=== PATIENT | female | born 1990 | race Caucasian/White ===

== ENCOUNTER 2017-09-14 00:50 | Inpatient (IN) | payer OTHER ==
[~2017-09-14] VITALS: Ht 165.1 cm; Wt 59.0 kg
--- NOTE | 2017-09-14 01:06 | NUR ---
PT BIB [facility] C/C OF SEIZURE X 1 HOUR AGO. PT UNCOOPERATIVE. NAD. VSS. AWAITING MD STEVENSON.
[2017-09-14] MEDS ORDERED: ONDANSETRON HCL/PF 4 MG/2 ML VIAL ONE (01:54)
[2017-09-14 01:56] LABS: BASOPHILS % (AUTO) 0.1 % (0.0-2.0); HEMATOCRIT 35 % (33-45); HEMOGLOBIN 11.9 g/dL (11.5-14.8); LYMPHOCYTES # (AUTO) 1.3 /CMM (0.8-4.8); LYMPHOCYTES % (AUTO) 8.8 % (20.0-44.0); MEAN CORPUSCULAR HEMOGLOBIN 31 PG (26.0-33.0); MEAN CORPUSCULAR HGB CONC 34 g/dl (31.0-36.0); MEAN CORPUSCULAR VOLUME 92 fL (82-100); MONOCYTES # (AUTO) 0.6 /CMM (0.1-1.30); MONOCYTES % (AUTO) 3.8 % (2.0-12.0); NEUTROPHILS # (AUTO) 13.1 /CMM (1.8-8.9); NEUTROPHILS % (AUTO) 87.3 % (43.0-81.0); PLATELET COUNT (AUTO) 271 /CMM (150-450); RDW COEFFICIENT OF VARIATION 12.7 (11.5-15.0); RED BLOOD CELL COUNT(AUTO) 3.81 MIL/uL (4.0-5.2)
[2017-09-14] MEDS ORDERED: ONDANSETRON HCL/PF 4 MG/2 ML VIAL IV ONE (02:00)
[2017-09-14 02:12] LABS: ACETAMINOPHEN 0 ug/ml (10-30); ALANINE AMINOTRANSFERASE 17 U/L (12-78); ALBUMIN 3.5 g/dL (3.4-5.0); ALCOHOL, BLOOD < 3 mg/dL (0-0); ALKALINE PHOSPHATASE 33 U/L (46-116); ASPARTATE AMINOTRANSFERASE 20 U/L (15-37); BILIRUBIN,DIRECT 0.2 mg/dL (0.0-0.2); BILIRUBIN,TOTAL 1.4 mg/dL (0.2-1.0); CALCIUM, SERUM 7.9 mg/dL (8.5-10.1); CARBON DIOXIDE 20 mmol/L (21-32); CHLORIDE 87 mmol/L (98-107); CREATININE 0.9 mg/dL (0.6-1.3); GLUCOSE 136 mg/dL (74-106); LIPASE 141 U/L (73-393); POTASSIUM 3.1 mmol/L (3.5-5.1); SALICYLATE < 0.2 mg/dL (2.8-20.0); TOTAL PROTEIN, SERUM 6.4 g/dL (6.4-8.2); UREA NITROGEN, BLOOD 7 mg/dL (7-18)
[2017-09-14 02:13] LABS: SODIUM SERUM 119 mmol/L (136-145)
--- NOTE | 2017-09-14 02:17 | NUR ---
PT BROUGHT TO CT
--- NOTE | 2017-09-14 02:34 | NUR ---
PT RETURNED FROM CT.
[2017-09-14 03:30] LABS: APPEARANCE,URINE CLEAR (CLEAR); BILIRUBIN,URINE NEGATIVE (NEGATIVE); BLOOD, URINE TRACE-INTA Ery/uL (NEGATIVE); COLOR,URINE YELLOW (YELLOW); KETONES,URINE 2+ (NEGATIVE); LEUKOCYTE ESTERASE ,URINE NEGATIVE (NEGATIVE); NITRITE, URINE NEGATIVE (NEGATIVE); PROTEIN,URINE NEGATIVE (NEGATIVE); UGLUCOSE NEGATIVE (NEGATIVE); UROBILINOGEN,URINE 0.2 EU/dL (0.2)
[2017-09-14 03:43] LABS: BACTERIA,URINE Few /HPF (None Seen); RBC,URINE 0-2 /HPF (0-2); WBC,URINE 0-2 /HPF (0-3)
[2017-09-14 03:44] LABS: SQUAMOUS EPITHELIAL CELL,UR Few /HPF (None Seen)
--- NOTE | 2017-09-14 03:45 | NUR ---
REPORT GIVEN TO DEVIKA GUERRA BED 106
--- NOTE | 2017-09-14 04:30 | NUR ---
wireless telegrapher notes received fishing vessel captain and report from mook er nurse , pts is 27 y/o female ,awake but not cooperative , admitted with dx of encephalopathy, hx unable to obtain . pts refused to answer question , admitted under the service of dr cesar . pts with ivf of ns at 75cc/hr infusing well no sob no distress noted v/s stable afebrile. all needs attended too call light within reach endorse to rn day shift to follow up on pts allergy due to pts not talking.dr cesar made aware of critical labs, sodium 119 k-3.1.
[2017-09-14 04:42] VITALS: BP 141/65
[2017-09-14] MEDS ORDERED: MAG HYDROX/AL HYDROX/SIMETH 30 ML UDC PO PRN (05:00)
[2017-09-14] MEDS ORDERED: ACETAMINOPHEN 325 MG TABLET PO PRN (05:00)
[2017-09-14] MEDS ORDERED: HYDROCODONE/APAP 5/325MG 1 EACH TABLET PO PRN (05:00)
[2017-09-14] MEDS ORDERED: MAGNESIUM HYDROXIDE 30 ML UDC PO PRN (05:00)
[2017-09-14] MEDS ORDERED: ONDANSETRON HCL/PF 4 MG/2 ML VIAL IVP PRN (05:00)
[2017-09-14] MEDS ORDERED: Z GUARD REMEDY 2 OZ OINT TP PRN (05:00)
[2017-09-14] MEDS ORDERED: ZOLPIDEM TARTRATE 5 MG TABLET PO PRN (05:00)
[2017-09-14] MEDS: IV NS 0.9% 1,000 ML IV PRN ×2 (05:45→20:04)
--- NOTE | 2017-09-14 07:15 | NUR ---
EIGHT SECTION BLOWER INITIAL NOTES PT RESTING IN BED, A&O X1 ONLY OPENS EYES MOANS AGITATED RESTLESS AND CONFUSED, UNABLE TO FOLLOW COMMANDS, ON RA SAT ABOVE 97% NO SOB OR ACUTE DISTRESS, UNABLE TO FIND OUT HX AND ALLERGIES SINCE PT HAS NO FAMILY AND IS NOT AWAKE TO ANSWER QS, ON TELE MON SR ST HR 115 WITH T ELEVATION, RT FA IV SITE INFILTRATED WILL NEED TO PUT NEW IV, DIAPER PLACED, BEDDING CHANGED, SEZIURE PRECAUTION, ALL NEEDS MET, ALL SAFETY MEASURES INITIATED, WILL CONTINUE TO MONITOR.
[2017-09-14 08:00] VITALS: BP 133/65
[2017-09-14 09:16] LABS: BASOPHILS # (AUTO) 0.1 /CMM (0.0-0.2); BASOPHILS % (AUTO) 0.5 % (0.0-2.0); HEMATOCRIT 41 % (33-45); HEMOGLOBIN 13.8 g/dL (11.5-14.8); LYMPHOCYTES # (AUTO) 1.3 /CMM (0.8-4.8); LYMPHOCYTES % (AUTO) 5.6 % (20.0-44.0); MEAN CORPUSCULAR HEMOGLOBIN 31 PG (26.0-33.0); MEAN CORPUSCULAR HGB CONC 33 g/dl (31.0-36.0); MEAN CORPUSCULAR VOLUME 94 fL (82-100); MONOCYTES # (AUTO) 1.2 /CMM (0.1-1.30); MONOCYTES % (AUTO) 5.2 % (2.0-12.0); NEUTROPHILS # (AUTO) 20.8 /CMM (1.8-8.9); NEUTROPHILS % (AUTO) 88.7 % (43.0-81.0); PLATELET COUNT (AUTO) 331 /CMM (150-450); RDW COEFFICIENT OF VARIATION 12.7 (11.5-15.0); WHITE BLOOD COUNT (AUTO) 23.4 K/uL (4.3-11.0)
[2017-09-14 09:43] LABS: ALBUMIN 3.9 g/dL (3.4-5.0); BILIRUBIN,TOTAL 2.5 mg/dL (0.2-1.0); CALCIUM, SERUM 8.8 mg/dL (8.5-10.1); POTASSIUM 4.6 mmol/L (3.5-5.1); TOTAL PROTEIN, SERUM 7.4 g/dL (6.4-8.2)
[2017-09-14 09:45] LABS: THYROID STIMULATING HORMONE 1.349 uIU/mL (0.358-3.74)
[2017-09-14 12:00] VITALS: BP 104/44
[2017-09-14 13:04] LABS: CREATINE KINASE MB 12.1 ng/mL (0-3.6)
[2017-09-14 16:00] VITALS: BP 103/60
--- NOTE | 2017-09-14 19:40 | NUR ---
MED SPEC NOTES, PT SLEEPING IN BED AT THIS TIME, BREATHING EVEN AND UNLABORED, ON RA SAT ABOVE 96% NO SOB OR ACUTE DISTRESS NOTED AT THIS TIME, SR ON TELE MONITOR, FRIENDS AT BEDSIDE, PIV LINE IN LEFT HAND, INTACT AND PATENT, NO S/S OF INFILTRATION NOTED AT THIS TIME, ALL NEEDS PROVIDED, ON SEIZURE PRECAUTIONS, BED LOCKED AND IN LOWEST POSITION, CALL LIGHT W/I REACH, WILL CONTINUE TO MONITOR.
[2017-09-14 20:00] VITALS: BP 96/59
--- NOTE | 2017-09-14 20:01 | NUR ---
CONCRETE MIXING TRUCK DRIVER ENDING NOTES PT IS A& O X 2-3 NOW AWAKE AND ABLE TO COMMUNICATE, BED BATH PROVIDED, LINENS CHANGED, PTS ROOMMATES AT BEDSIDE ARI AND ELI, AND [phone], INSERTED NEW IV LT HAND 22G IV NS RUNNING 125 ML/HR NO INFILTRATION NOTED, NO PO MEDS GIVEN, ALL NEEDS MET, SAFETY PRECAUTION, PER MD ORDER NO HALDOL OR ATIVAN, WILL CONTINUE TO MONITOR AND CARE FOR PT.
[2017-09-15] VITALS: BP_SYST 92; BP_SYST 99; BP_DIAS 44; BP_DIAS 48
[2017-09-15 04:00] VITALS: BP 107/48
[2017-09-15 06:29] LABS: BASOPHILS % (AUTO) 0.3 % (0.0-2.0); HEMATOCRIT 38 % (33-45); HEMOGLOBIN 12.6 g/dL (11.5-14.8); LYMPHOCYTES # (AUTO) 1.5 /CMM (0.8-4.8); LYMPHOCYTES % (AUTO) 13.8 % (20.0-44.0); MEAN CORPUSCULAR HEMOGLOBIN 32 PG (26.0-33.0); MEAN CORPUSCULAR HGB CONC 34 g/dl (31.0-36.0); MEAN CORPUSCULAR VOLUME 94 fL (82-100); MONOCYTES # (AUTO) 1.2 /CMM (0.1-1.30); NEUTROPHILS % (AUTO) 74.9 % (43.0-81.0); PLATELET COUNT (AUTO) 254 /CMM (150-450); RDW COEFFICIENT OF VARIATION 13.4 (11.5-15.0); WHITE BLOOD COUNT (AUTO) 10.6 K/uL (4.3-11.0)
--- NOTE | 2017-09-15 06:30 | NUR ---
NURSE SUPERVISOR ENDING NOTES PATIENT, SLEEPING AT THIS TIME BUT EASILY AROUSABLE, BREATHING EVEN AND UNLABORED, NO SOB/ACUTE DISTRESS NOTED AT THIS TIME, NO C/O PAIN OR ANY DISCOMFORT, AND ABLE TO VERBALIZED NEEDS AND CONCERNS, LEFT HAND 22G PIV INTACT AND PATENT, NS 75 ML/HR NO S/S OF INFILTRATION NOTED, ON SEIZURE PRECAUTIONS, PER MD ORDER NO HALDOL OR ATIVAN, BED LOCKED AND IN LOWEST POSITION, CALL LIGHT W/I REACH, WILL ENDORSE CONTINUITY OF CARE TO ONCOMING NURSE.
[2017-09-15 06:37] LABS: ALBUMIN 3.3 g/dL (3.4-5.0); CALCIUM, SERUM 8.2 mg/dL (8.5-10.1); CREATININE 0.9 mg/dL (0.6-1.3); PHOSPHORUS 2.6 mg/dL (2.5-4.9); POTASSIUM 3.8 mmol/L (3.5-5.1); TOTAL PROTEIN, SERUM 6.6 g/dL (6.4-8.2)
--- NOTE | 2017-09-15 07:45 | NUR ---
FLIGHT COMMUNICATIONS OFFICER OPENING NOTES RECEIVED PATIENT IN STABLE CONDITION. IN NO APPARENT DISTRESS. BEDSIDE RAILS ARE UPX2. BED IS LOCKED AND LOWERED. CALL LIGHT IS WITHIN REACH. IV LINE IS INTACT AND PATENT. WILL CONTINUE TO MONITOR.
[2017-09-15 08:00] VITALS: BP 102/60
[2017-09-15] MEDS: IV NS 0.9% 1,000 ML IV PRN ×2 (09:12→22:34)
[2017-09-15 12:00] VITALS: BP 98/52
--- NOTE | 2017-09-15 14:30 | NUR ---
Social service consult requested by TJSharri SALAZAR Soon for drug overdose. Pt. is a 27 year old female who was admitted to [facility] for hyponutremia and ALOC. SW met with pt. bedside. Pt's roommate Jose was present, however left once SW met the pt. bedside. Pt. states she lives with two roommates at [address] [place] [address] in [facility]. Pt. is originally from [facility] and her family lives there as well. Pt's emergency contact is her brother Collin . Pt. stated she was at a concert with her roommates at the [facility] when she began to collapse and started shaking while at the concert. Pt. stated she had taken ecstasy at around 6:30pm that day. Pt. states this is the second time she has done ecstasy and has never had a bad reaction as this before. Pt. denies using any other drugs and states she has used marijuana but very rarely. Pt. drinks alcohol socially. LATHA inquired with pt. if she would like any referrals to drug treatment programs. Pt. declined. SW advised pt. to be careful when consuming drugs since she is unaware of what exactly is in the drugs she is using. Pt. understood. No other social service needs are required at this time.
[2017-09-15 16:00] VITALS: BP 96/50
--- NOTE | 2017-09-15 18:22 | NUR ---
AUTOMOTIVE TECHNOLOGY INSTRUCTOR CLOSING NOTES PATIENT IS RESTING IN STABLE CONDITION. IN NO APPARENT DISTRESS. BEDSIDE RAILS ARE UPX2. BED IS LOCKED AND LOWERED. CALL LIGHT IS WITHIN REACH. IV LINE IS INTACT AND PATENT. ALL NEEDS WERE MET. WILL ENDORSE CARE TO MOTEL CLERK NURSE FOR JOSAFAT.
--- NOTE | 2017-09-15 19:30 | NUR ---
SET UP AND LAY OUT INSPECTOR INITIAL NOTES, SLEEPING IN BED AT THIS TIME, BREATHING EVEN AND UNLABORED, ON RA SAT ABOVE 98% NO SOB OR ACUTE DISTRESS NOTED AT THIS TIME, NO C/O PAIN OR DISCOMFORT AT THIS TIME, SR ON TELE MONITOR, FRIENDS AT BEDSIDE, PIV LINE IN LEFT HAND, INTACT AND PATENT, NO S/S OF INFILTRATION NOTED AT THIS TIME, IVF INFUSING WELL AND PATIENT TOLERATED WELL, ALL NEEDS PROVIDED, BED LOCKED AND IN LOWEST POSITION, CALL LIGHT W/I REACH, WILL CONTINUE TO MONITOR. CLOSELY.
[2017-09-15 20:00] VITALS: BP 101/53
[2017-09-16] VITALS: BP 99/44
[2017-09-16 04:00] VITALS: BP 101/49
[2017-09-16 06:37] LABS: BASOPHILS % (AUTO) 0.6 % (0.0-2.0); EOSINOPHILS % (AUTO) 0.7 % (0.0-6.0); HEMATOCRIT 35 % (33-45); HEMOGLOBIN 11.9 g/dL (11.5-14.8); LYMPHOCYTES # (AUTO) 2.9 /CMM (0.8-4.8); LYMPHOCYTES % (AUTO) 39.5 % (20.0-44.0); MEAN CORPUSCULAR HEMOGLOBIN 32 PG (26.0-33.0); MEAN CORPUSCULAR HGB CONC 34 g/dl (31.0-36.0); MEAN CORPUSCULAR VOLUME 93 fL (82-100); MONOCYTES # (AUTO) 0.7 /CMM (0.1-1.30); MONOCYTES % (AUTO) 9.9 % (2.0-12.0); NEUTROPHILS # (AUTO) 3.6 /CMM (1.8-8.9); NEUTROPHILS % (AUTO) 49.3 % (43.0-81.0); PLATELET COUNT (AUTO) 234 /CMM (150-450); RDW COEFFICIENT OF VARIATION 13.6 (11.5-15.0); RED BLOOD CELL COUNT(AUTO) 3.74 MIL/uL (4.0-5.2); WHITE BLOOD COUNT (AUTO) 7.3 K/uL (4.3-11.0)
--- NOTE | 2017-09-16 06:42 | NUR ---
PERSONAL DRIVER CLOSING NOTES, PATIENT SLEEPING IN BED AT THIS TIME, BREATHING EVEN AND UNLABORED, NO SOB OR ACUTE DISTRESS NOTED AT THIS TIME, NO C/O PAIN OR DISCOMFORT AT THIS TIME, SB ON TELE MONITOR, PIV LINE IN LEFT HAND, INTACT AND PATENT, NO S/S OF INFILTRATION NOTED AT THIS TIME, IVF INFUSING WELL AND PATIENT TOLERATED WELL, ALL NEEDS PROVIDED, BED LOCKED AND IN LOWEST POSITION, REMAINED STABLE THROUGHOUT THE NIGHT, CALL LIGHT W/I REACH, WILL CONTINUE TO MONITOR. CLOSELY.
[2017-09-16 06:50] LABS: ALBUMIN 3.1 g/dL (3.4-5.0); BILIRUBIN,TOTAL 0.3 mg/dL (0.2-1.0); CALCIUM, SERUM 8.3 mg/dL (8.5-10.1); CREATININE 0.8 mg/dL (0.6-1.3); POTASSIUM 3.6 mmol/L (3.5-5.1); TOTAL PROTEIN, SERUM 6.3 g/dL (6.4-8.2)
[2017-09-16 08:00] VITALS: BP 103/56
[2017-09-16 12:00] VITALS: BP 98/58
--- NOTE | 2017-09-16 15:00 | NUR ---
RN NOTE PT DISCHARGED HOME WITH FRIENDS VIA OWN TRANSPORTATION, IN STABLE CONDITION, DISCHARGE INSTRUCTIONS PROVIDED TO PT, EXIT CARE DONE, TEACHING DONE TO PT, PT VERBALIZED UNDERSTANDING, IV REMOVED, ID BAND REMOVED, BELONGINGS LIST SIGNED, BELONGINGS PROVIDED TO PT. SKIN IS INTACT, PT AMBULATORY, INSTRUCTIONS FOR OUTPATIENT MRI AND EEG GIVEN. PT VERBALIZED UNDERSTANDING.
== END 2017-09-16 15:10 | disposition home or self-care (01) | DRG 918 ==
LOC: ER 00:59 → TELE-TD 03:23 → TELE1 05:21
PROVIDERS: ADMIT Internal Medicine; ATTEND Internal Medicine
DX: T43.621A Poisoning by amphetamines, accidental (unintentional), initial encounter (principal); E87.1 Hypo-osmolality and hyponatremia; Y92.89 Other specified places as the place of occurrence of the external cause; D72.829 Elevated white blood cell count, unspecified; E86.0 Dehydration; E87.6 Hypokalemia; E86.1 Hypovolemia; R73.9 Hyperglycemia, unspecified; R56.9 Unspecified convulsions; F15.90 Other stimulant use, unspecified, uncomplicated; E80.6 Other disorders of bilirubin metabolism
CPT/HCPCS: 36415; 70450-TC; 80048-TC; 80053-TC; 80061-TC; 80076-TC; 80305; 81000-TC; 82550-TC; 82553-TC; 83690-TC; 83735-TC; 83935-TC; 84100-TC; 84443-TC; 84703-TC; 85025-TC; 87081-TC; 87086-TC; A4606; G0480; J2405; J3490; J7030; Z7610